=== PATIENT | female | born 1980 | race Caucasian/White ===

== ENCOUNTER 2023-02-09 10:13 | Outpatient (REF) | payer OTHER, SELFPAY | END 2023-02-09 10:14 | disposition home or self-care (01) | LOC: HO.LAB 10:13 | PROVIDERS: PCP Internal Medicine; Visit Provider Psychiatry & Neurology Psychiatry | DX: Z79.899 Other long term (current) drug therapy (principal) | CPT/HCPCS: 36415; 80061; 80076; 84443; 85025; 93005 ==

== ENCOUNTER 2024-12-20 14:12 | Outpatient (AMB) | payer OTHER, SELFPAY ==
--- NOTE | 2024-12-20 14:25 | MHC.OFFVIS ---
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 She has been experiencing lower back pain since shortly after her liver transplant in July 2024. The pain is intense, with a reported severity of 8/10, and has multiple descriptors, including stabbing and burning sensations, greatly impacting her daily activities. She has a medical history of liver transplant following alcohol abuse, now in sobriety for two years, which adds complexity to her pain management. Her bilateral feet pain is associated with numbness and a sensation of tingling, particularly around the shins and tops and bottom of her feet, consistent with peripheral neuropathy possibly aggravated by tacrolimus post-transplant. She is scheduled to undergo EMG testing. Additionally, the patient's medical history is significant for generalized anxiety disorder, bipolar disorder, and PTSD, which likely contribute to her pain perception and management challenges. She is followed by Dr. Juancho Shaw, psychiatrist at [facility], meets with therapist every other week via telehealth. She has previously been advised by orthopedics for chronic right knee and hip pain but has yet to pursue Orthopedic follow-up, primarily due to prioritizing her liver transplant recovery and subsequent complications. Dr. Sameer Gonzalez, Nephrology at [facility], last seen November [address] Judith Reynoso, Hematology at [facility], currently monitoring low WBC. - Chronic lower back pain onset post-liver transplant in July 2024; persistent since. - Pain severity is rated at 8/10, described as pulsing, throbbing, stabbing, sharp, pinching, cramping, tugging, pulling, burning, tingling, thirsting, aching, heavy, tight, squeezing, punishing, and killing. - Pain location includes lower back, bilateral feet, tops of feet, and shins. - Worsened by lying on the back; alleviating factors include prior use of hydrocodone - Bilateral feet pain includes numbness and tingling, particularly on the tops>bottoms of feet and big toes. - Affect: Patient manages pain with oxycodone and reports significant impact on mental health, indicated by associated anxiety and bipolar disorder. - Analgesia: Oxycodone, supplemented with Tylenol, cyclobenzaprine and gabapentin; current pain level is 8/10. - Adverse Effects: No explicit side effects of pain medications reported, but potential concern due to chronic kidney disease. - Activities of Daily Living: Pain impacts daily living significantly; difficulty with sleeping due to back pain. - Aberrant Drug-Related Behaviors: No reported misuse or early refill requests. Oswestry Low Back Pain Disability Score=22 (moderate disability) [facility] Medical History (Updated 12/20/24 @ 21:53 by CONG Barriga) Vitamin B12 deficiency Sleep disturbance Shoulder pain, left PTSD (post-traumatic stress disorder) Peripheral neuropathy Increased urinary frequency Immunosuppression Hyponatremia Hypertension Hyperbilirubinemia History of fracture History of cirrhosis of liver History of alcoholism Gastric ulcer GERD (gastroesophageal reflux disease) Bruxism Chronic lower back pain Bipolar disorder Anxiety Anemia Abnormal urinalysis Abnormal TSH Surgical History (Updated 12/20/24 @ 21:49 by CONG Barriga) History of tonsillectomy Liver transplant recipient (~07/2024) History of lumbar surgery S/P ERCP (~10/2024) History of umbilical hernia repair History of liver transplant Review of Systems Const Details: - Musculoskeletal: Reports chronic lower back pain, chronic right knee pain, chronic right hip pain. - Neurologic: Reports bilateral foot pain, numbness, and tingling in feet and shins. - Psychiatric: Reports anxiety, bipolar disorder, PTSD. - Genitourinary: Reports urinary frequency. - Dermatological: Reports history of recent left ankle cellulitis. - Constitutional: Reports generalized pain discomfort. All systems reviewed & are unremarkable except as noted in HPI and below Physical Exam Vital Signs: Last Vital Signs Pulse 107 H 12/20/24 14:32 BP 112/71 12/20/24 14:32 BMI result Body Mass Index 23.4 General: Appears afebrile. Alert and oriented. Mood and affect appropriate. Follows and participates in conversation appropriately. Respiratory effort is unlabored. No cough. Able to transition from sit to stand unassisted. Ambulates with bilaterally normal heel strike and toe off. General: Yes no CVA tenderness Back/Spine/Pelvis Other: Limited lumbar ROM due to pain, lumbar extension, flexion and bending reproduce moderate pain, worse with axial rotations and extension. Demonstrates 5/5 strength of quadriceps bilaterally as well as 4/5 left and 5/5 right flexion/dorsiflexion of bilateral feet against resistance. 2+ pedal pulses bilaterally. Straight leg rise with dorsiflexion negative bilaterally. +1 patellar and diminished achilles reflexes bilaterally. Facet loading test positive bilaterally. Apul sign, Tin?s, Pelvic compression and Stinchfield tests are negative bilaterally. No groin pain with I/E hip rotations. Valsalva maneuver negative. Back: no CVA tenderness Cervical Spine: cervical ROM normal, cervical muscular tenderness and No Cervical spine tenderness Thoracic/Lumbar Spine: thoracic and lumbar spine normal to inspection, Thoracic/lumbar spine scar(s), Lasegue's sign negative, straight leg raise negative bilaterally, pain with thoraco-lumbar ROM, paraspinal muscle tenderness bilaterally, thoraco-lumbar ROM limited, No thoracic spinal tenderness and lumbar spinal tenderness at L4 and at L5 Pelvis: no buttock tenderness Sacroiliac joints: bilaterally tender to palpation Extrem Other: There is a decreased and altered sensation over the soles of the feet and toes. Reports numbness, burning, hot, tingling in both feet, worse at night time. No breaks in the skin. No soft tissue swelling or warmth. +2 pedal pulses bilaterally. General: Yes capillary refill normal, Yes no clubbing, cyanosis or edema and Yes no calf tenderness Left lower extremity: ankle Details: normal to inspection, no edema and normal ROM; no tenderness, no swelling, no warmth and no crepitus Results Reviewed Results Reviewed: Assessment & Plan Assessment & Plan (1) Lumbar degenerative disc disease: Code(s): M51.369 - Other intervertebral disc degeneration, lumbar region without mention of lumbar back pain or lower extremity pain Category: Medical (2) Chronic lower back pain: Code(s): M54.50 - Low back pain, unspecified; G89.29 - Other chronic pain Category: Medical (3) History of alcoholism: Code(s): F10.21 - Alcohol dependence, in remission Category: Medical (4) Peripheral neuropathy: Code(s): G62.9 - Polyneuropathy, unspecified Category: Medical (5) Lumbosacral spondylosis: Code(s): M47.817 - Spondylosis without myelopathy or radiculopathy, lumbosacral region Category: Medical (6) History of liver transplant: Code(s): Z94.4 - Liver transplant status Category: Medical (7) Lumbar post-laminectomy syndrome: Code(s): M96.1 - Postlaminectomy syndrome, not elsewhere classified Category: Medical Plan I discussed pursuing a spinal cord stimulator trial, pending psychiatric evaluation clearance, to address chronic pain. Scheduled an EMG test to assess neuropathy. Continuing current pain management regime judiciously, considering renal function. Explored additional pain relief options, such as capsaicin topical therapy. Coordination with psychiatrist Dr. Shaw necessary for stimulator suitability. Extensive discussion regarding the risks and benefits of SCS trial and implant procedures and all questions were answered to patient satisfaction. Will proceed with Nevro Lumbar SCS trial pending psychology clearance. Will try to arrange topical 8% capsaicin application for bilateral foot pain once we have confirmed availability. All questions and concerns have been answered and the patient agreed with the plan. Follow up as needed. Patient was informed and verbally consented to the use of an ambient scribe for clinic note documentation during this visit. Coding Level of Care Code New Pt Level 4 (57021) Diagnoses Lumbar degenerative disc disease M51.369 Chronic lower back pain M54.50; G89.29 History of alcoholism F10.21 Peripheral neuropathy G62.9 Lumbosacral spondylosis M47.817 History of liver transplant Z94.4 Lumbar post-laminectomy syndrome M96.1
[2024-12-20 14:32] VITALS: BP 112/71; PULSE 107; BMI 23.4
== END 2024-12-20 14:59 | disposition home or self-care (01) ==
LOC: HO.PMC 14:12
PROVIDERS: PCP Nurse Practitioner Family; Referring Provider Nurse Practitioner Family; Visit Provider Nurse Practitioner Family
DX: M51.369 Other intervertebral disc degeneration, lumbar region without mention of lumbar back pain or lower extremity pain (principal); M54.50 Low back pain, unspecified; G89.29 Other chronic pain; F10.21 Alcohol dependence, in remission; G62.9 Polyneuropathy, unspecified; M47.817 Spondylosis without myelopathy or radiculopathy, lumbosacral region; Z94.4 Liver transplant status; M96.1 Postlaminectomy syndrome, not elsewhere classified
CPT/HCPCS: 99204

== ENCOUNTER → 2024-12-20 14:12 | Outpatient (BNVA) | payer OTHER, SELFPAY | PROVIDERS: PCP Nurse Practitioner Family; Referring Provider Nurse Practitioner Family; Visit Provider Nurse Practitioner Family | DX: M51.360 Other intervertebral disc degeneration, lumbar region with discogenic back pain only (principal); G89.29 Other chronic pain; F10.21 Alcohol dependence, in remission; G62.9 Polyneuropathy, unspecified; M47.817 Spondylosis without myelopathy or radiculopathy, lumbosacral region; M96.1 Postlaminectomy syndrome, not elsewhere classified; Z94.4 Liver transplant status | CPT/HCPCS: 99202 ==

== ENCOUNTER 2025-02-28 09:47 | Outpatient (AMB) | payer OTHER, SELFPAY ==
--- NOTE | 2025-02-28 09:53 | A.OFFVIS_ITS ---
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 The knee pain has been present for at least 10 years and has progressively worsened over time. The patient recalls a previous mention of a meniscus issue and was advised to avoid descending stairs. The pain is described as aching all over the knee, with increased pain upon walking or standing. Occasional clicking or popping is noted, and the patient has experienced stabilization issues at times. The patient has a history of arthritis in both knees, with the right knee being more symptomatic. She has used ice and a brace, oxycodone and gabapentin for pain management, although the brace limits mobility. The patient is allergic to cortisone, which was discovered after a previous injection attempt. She has not tried gel injections but is open to exploring this option. The patient has a history of ascites, which she believes has contributed to her knee issues due to weight fluctuations. She underwent a liver transplant last July and has been stable since then. At previous visit we discussed neuromodulation for chronic painful diabetic neuropathy and Qutenza application. Patient reports chronic sores on her feet and is hesitant towards 8% capsaicin applications or SCS trial at this time. She denies any rashes or ulcers today. Denies any recent cough, cold, infection, fever or any significant changes in medical history since last office visit. - Onset: Pain has been present for at least 10 years. - Quality: Aching pain all over right knee. - Location: Right knee, anterior aspects with tenderness along joint lines - Exacerbating factors: Walking, standing, climbing, bending - Relieving factors: Ice application, use of a brace. - Interference: Pain interferes with walking and standing. - Affect: Pain impacts mobility and daily activities. - Analgesia: Uses ice and a brace; oxycodone and gabapentin; allergic to cortisone. - Adverse Effects: Brace limits mobility. - Activities of Daily Living: Pain affects ability to walk and stand. - Aberrant Drug Related Behaviors: None reported. [facility] Medical History (Updated 02/28/25 @ 10:02 by CONG Barriga) Vitamin B12 deficiency Sleep disturbance Shoulder pain, left PTSD (post-traumatic stress disorder) Peripheral neuropathy Increased urinary frequency Immunosuppression Hyponatremia Hypertension Hyperbilirubinemia History of fracture History of cirrhosis of liver History of alcoholism Gastric ulcer GERD (gastroesophageal reflux disease) Bruxism Chronic lower back pain Bipolar disorder Anxiety Anemia Abnormal urinalysis Abnormal TSH Surgical History History of tonsillectomy Liver transplant recipient (~07/2024) History of lumbar surgery S/P ERCP (~10/2024) History of umbilical hernia repair History of liver transplant Review of Systems Const Details: - Musculoskeletal: Reports right knee pain, occasional clicking or popping, and arthritis in both knees. - Allergic/Immunologic: Reports allergy to cortisone. All systems reviewed & are unremarkable except as noted in HPI and below Physical Exam Vital Signs: Last Vital Signs Pulse 92 02/28/25 09:56 BP 127/77 02/28/25 09:56 Pulse Ox 96 02/28/25 09:56 Oxygen Delivery Method Room Air 02/28/25 09:56 BMI result Body Mass Index 23.6 General: Appears afebrile. No acute distress. Alert and oriented. Mood and affect appropriate. Follows and participates in conversation appropriately. Respiratory effort is unlabored. No cough. Able to transition from sit to stand unassisted. Ambulates with bilaterally normal heel strike and toe off. Extrem General: Yes capillary refill normal, Yes no clubbing, cyanosis or edema and Yes no calf tenderness Right lower extremity: knee (Limited ROM due to pain.) Details: normal to inspection, tenderness Location: of the medial joint line and of the lateral j oint line and crepitus; no swelling, no abrasions, no ecchymosis, no deformity and no unusual warmth Results Reviewed Results Reviewed: XR KNEE, RIGHT 02/28/25 at [facility] [place] CLINICAL INFORMATION: M25.561 - Pain in right knee COMPARISON: None available. TECHNIQUE: AP lateral and sunrise views of the right knee. FINDINGS: No acute cortical disruption or malalignment. Mild joint space narrowing involving medial lateral compartments with small marginal osteophyte formation in the lateral tibial plateau. No suprapatellar bursa joint effusion. No lytic or blastic lesions. Vascular calcifications. IMPRESSION: Mild bicompartmental osteoarthrosis. Assessment & Plan Assessment & Plan (1) Right knee pain: Code(s): M25.561 - Pain in right knee Category: Medical (2) Osteoarthritis of right knee: Code(s): M17.11 - Unilateral primary osteoarthritis, right knee Category: Medical Plan The patient completed right knee xray after today's visit, noted for mild bicompartmental osteoarthrosis. Physical therapy is recommended to strengthen the muscles around the knees for better joint support, increase flexibility, ROM and potentially reduce knee pain thus decrease dependence on medications. The patient is advised to consider gel injections as an alternative to cortisone due to her allergy. She is currently taking oxycodone and gabapentin prescribed by her PCP provider. Nerve blocks may be explored to determine eligibility for radiofrequency ablation or peripheral nerve stimulation. Lidocaine patches will be prescribed to manage pain. Patient avoids NSAIDs due to kidney concerns and h/o liver transplant. All questions and concerns have been answered and patient agreed with the treatment plan. Follow up after PT and sooner as needed. Patient was informed and verbally consented to the use of an ambient scribe for clinic note documentation during this visit. Orders: Orders XR knee RT 3V Today M17.11 - Unilateral primary osteoarthritis, right knee, M25.561 - Pain in right knee PT Evaluation and Treatment Today M17.11 - Unilateral primary osteoarthritis, right knee, M25.561 - Pain in right knee Medications: New lidocaine 5% leave on most painful area for up to 12 hrs topically daily; 30 ea 3RF pain 30 days M17.11 - Unilateral primary osteoarthritis, right knee, M25.561 - Pain in right knee Discontinued lidocaine-prilocaine 2.5-2.5 % Apply 15-30 min to both clean feet prior to Qutenza appt Discontinued Reason: Patient no longer taking 1 appl topical ONCE 30 grams 3RF pain G62.9 - Polyneuropathy, unspecified Coding Level of Care Code Est Pt Level 4 (93830) Complex EM visit Add On G2211 Diagnoses Right knee pain M25.561 Osteoarthritis of right knee M17.11
[2025-02-28 09:56] VITALS: BP 127/77; PULSE 92; O2SAT 96; BMI 23.6
== END 2025-02-28 10:18 | disposition home or self-care (01) ==
LOC: HO.PMC 09:48
PROVIDERS: PCP Nurse Practitioner Family; Visit Provider Nurse Practitioner Family
DX: M25.561 Pain in right knee (principal); M17.11 Unilateral primary osteoarthritis, right knee
CPT/HCPCS: 99214; G2211

== ENCOUNTER 2025-02-28 09:47 | Outpatient (REF) | payer OTHER, SELFPAY ==
--- NOTE | ~2025-02-28 | XR_ITS ---
EXAMINATION: XR KNEE, RIGHT CLINICAL INFORMATION: M25.561 - Pain in right knee COMPARISON: None available. TECHNIQUE: AP lateral and sunrise views of the right knee. FINDINGS: No acute cortical disruption or malalignment. Mild joint space narrowing involving medial lateral compartments with small marginal osteophyte formation in the lateral tibial plateau. No suprapatellar bursa joint effusion. No lytic or blastic lesions. Vascular calcifications. XR/XR knee RT 3V IMPRESSION: Mild bicompartmental osteoarthrosis. Electronically signed by: Alfonso Godoy MD 02/28/2025 10:52 AM EDT
== END 2025-02-28 09:48 | disposition home or self-care (01) ==
LOC: HO.XRAY 09:47
PROVIDERS: PCP Nurse Practitioner Family; Visit Provider Nurse Practitioner Family
DX: M17.11 Unilateral primary osteoarthritis, right knee (principal); M25.561 Pain in right knee; G62.9 Polyneuropathy, unspecified
CPT/HCPCS: 73562; 99212

== ENCOUNTER → 2025-02-28 10:19 | Outpatient (BNV) | payer OTHER, SELFPAY | PROVIDERS: PCP Nurse Practitioner Family; Visit Provider Radiology Diagnostic Radiology | DX: M17.11 Unilateral primary osteoarthritis, right knee (principal) | CPT/HCPCS: 73562 ==

== ENCOUNTER 2025-05-21 10:27 | Outpatient (AMB) | payer OTHER, SELFPAY ==
[2025-05-21 10:33] VITALS: BMI 23.6
--- NOTE | 2025-05-21 10:33 | MHC.OFFVIS ---
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 States she is having pain in all of her hand joints, left is worse than her right. States pain worsen in November after having white cells & blood transfusion and has not improved. Patient has tried using a brace in the past who no relief. Patient describes her pain as in ache in joints of all of her fingers, soreness and weakness in wrist. Left wrist has a popping sound when turning wrist. Hx of liver transplant. Denies numbness or tingling in hand. 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 She complains of bilateral hand & wrist pain, L>R. She complains of a constant ache in all her finger joints, soreness, and weakness in her wrists, which worsens with use. She also feels a painful popping sensation in her left wrist with ROM. No finger locking or catching, no numbness or tingling. She denies any falls or known injury. She says she has a family Hx of Rheumatoid arthritis, but she was evaluated for this in my 30's and said these tests were all negative. She says her symptoms of pain worsened after her liver transplant in 07/2024, as she frequently used her hands to push herself out of her chair. She follows with Pain Management for multiple Lumbar issues, and right knee OA. She reports neuropathy in her feet. [facility] Medical History (Updated 05/21/25 @ 11:33 by Rolly Pruitt) Vitamin B12 deficiency Sleep disturbance Shoulder pain, left PTSD (post-traumatic stress disorder) Peripheral neuropathy Increased urinary frequency Immunosuppression Hyponatremia Hypertension Hyperbilirubinemia History of fracture History of cirrhosis of liver History of alcoholism Gastric ulcer GERD (gastroesophageal reflux disease) Bruxism Chronic lower back pain Bipolar disorder Anxiety Anemia Abnormal urinalysis Abnormal TSH Surgical History History of tonsillectomy Liver transplant recipient (~07/2024) History of lumbar surgery S/P ERCP (~10/2024) History of umbilical hernia repair History of liver transplant Social History (Updated 05/21/25 @ 10:38 by LULU Haney) Current occupational status: disabled Current occupation: right hand Review of Systems Const All systems reviewed & are unremarkable except as noted in HPI and below Physical Exam Vital Signs: BMI result Body Mass Index 23.6 Const General: cooperative, healthy appearing and no acute distress Orientation/consciousness: patient oriented x3 HEENT Head: Yes normocephalic and Yes atraumatic Eyes EOM: EOMs intact bilaterally Resp Effort & Inspection: normal respiratory effort and able to speak in complete sentences Cardio Jugular venous distension: no JVD Skin General skin exam: turgor normal Rashes: no rashes Neuro General: patient oriented x3 Extrem Other: Evaluation of Left Upper Extremity: The patient is alert, oriented, and in no acute distress Neuro: Median, Ulnar, Radial nerves motor and sensory intact and sensation is normal to the tips of all digits No thenar or intrinsic wasting Good APB muscle belly firing and good finger cross Good ABduction & ADduction Vascular: Cap refill brisk ROM: She can make a fist and extend all her digits No locking or catching Smooth & symmetrical wrist ROM Skin: No lacerations or abrasions. General: No Ecchymosis. No Erythema or evidence of infection. DRUJ stable No tenderness over the wrist joint No snuffbox or scaphoid tubercle tenderness Radiographs: 3 views of the left hand were taken and viewed by me today in clinic. They show no fractures, dislocations, or significant arthritic changes Psych Appearance: grossly normal Affect: normal affect Attitude: cooperative Assessment & Plan Assessment & Plan (1) Bilateral hand pain: Code(s): M79.641 - Pain in right hand; M79.642 - Pain in left hand Category: Medical (2) Pain of both wrist joints: Code(s): M25.531 - Pain in right wrist; M25.532 - Pain in left wrist Category: Medical Plan Assessment & Plan: 1. Left hand & wrist generalized pain In all digits, etiology unclear This is her chief complaint today 2. Right hand & wrist generalized pain In all digits, etiology unclear I educated her about this condition It sounds like these symptoms began after her liver transplant in July 2025 when she needed to use her hands to push herself up out of a chair frequently. Symptoms are improving but slowly. I discussed treatment options I recommend activity modification, and she is in agreement No operative intervention indicated at this time, radiographs normal I ordered OT hand therapy to work on stretching, strengthening, and normalizing function She can follow up prn Scribed for Aileen Dinh MD by Rolly Pruitt, biomedical equipment specialist, on 05/21/25 at 11:30 AM, EST. Orders: Orders OT Evaluation and Treatment Today M79.641 - Pain in right hand, M79.642 - Pain in left hand XR hand LT min 3V Today M79.642 - Pain in left hand Coding Level of Care Code New Pt Level 3 (01887) Diagnoses Bilateral hand pain M79.641; M79.642 Pain of both wrist joints M25.531; M25.532
--- OUTSIDE RECORDS SUMMARY | 2025-05-21 12:26 | XMS_ITS | Data Portability ---
Author Organization [facility] Address [address] [place] [address] Care Team Providers Care Concrete Paving Supervisor Name Role Phone HIM CROW OTHER Assessment Encounter Date Assessment Date Assessment LastModified by Organization Details LastModified Time 12/13/2023 12/13/2023 As noted, we were called to see this patient regarding concerns of fever. Evaluation in the field was performed by my steam drier tender colleague, as noted above, I provided real-time direction and supervision for this visit. The evaluation revealed 43y F with cirrhosis presenting w fever, abdominal pain, hypotension, tachycardia -- concern for SBP, sepsis, other infectious etiology. Recommend ER. Patient agrees. Impression: concern for sepsis, SBP Plan: ER referral Primary care, consider ER f/u atilhou Not available 12/13/2023 21:26:20 Plan of Treatment Reminders Order Date Submit Date Provider Last Modified By Organization Details Last Modified Time Details Appointments None record ed. Lab None record ed. Referral None record ed. Procedures None record ed. Surgeries None record ed. Imaging None record ed. Medication Orders None record ed. Patient TargetsNo targets recorded. Patient InstructionsNo instructions recorded. Reason for Referral None Reported. Medical Equipment None Reported. Allergies Allergen ID Allergen Name Allergen Category Reaction Reaction Severity Criticality Documentation Date Start Date Code Code System Note Provider Name and Address Organization Details Recorded Time 9711 latex environme nt,medica tion Not available Not available Not available 06/04/2024 51832 91 RxNorm Not Available [facility] - production 04:14:49 Medications Name Sig Start Date Stop Date Status Note LastModified by Organization Details LastModified Time vitamin b-1 100 mg tabs TAKE 1 TABLET BY MOUTH EVERY DAY active Not Available Not Available No t Available cyclobenzapr ine 10 mg tablet TAKE 1 TABLET BY MOUTH TWICE DAILY NEEDED FOR SPASM active Not Available Not Available No t Available furosemide 40 mg tablet TAKE 2 TABLETS BY MOUTH DAILY active Not Available Not Available Not Available medroxyproge sterone 10 mg tablet TAKE 1 TABLET BY MOUTH DAILY FOR 10 DAYS active Not Available Not Available Not Available clonidine HCl 0.1 mg tablet TAKE 2 TABLETS BY MOUTH AT BEDTIME active Not Available Not Available No t Available trazodone 50 mg tablet TAKE 1 TABLET BY MOUTH AT BEDTIME NEEDED FOR SLEEP active Not Available Not Available No t Available ondansetron HCl 4 mg tablet TAKE 1 TABLET BY MOUTH EVERY 8 HOURS NEEDED FOR NAUSEA OR VOMITING active Not Available Not Available No t Available clonazepam 0.5 mg tablet TAKE 1 TABLET BY MOUTH EVERY DAY NEEDED FOR ANXIETY OR INSOMNIA active Not Available Not Available No t Available spironolacto ne 100 mg tablet TAKE 2 TABLETS BY MOUTH DAILY IN THE MORNING active Not Available Not Available No t Available cyanocobalam in (vit B-12) 1,000 mcg tablet TAKE 1 TABLET BY MOUTH DAILY active Not Available Not Available Not Available tramadol 50 mg tablet TAKE 1 TABLET BY MOUTH EVERY 12 HOURS NEEDED FOR PAIN active Not Available Not Available No t Available clonidine HCl 0.2 mg tablet TAKE 2 TABLETS BY MOUTH EVERY NIGHT active Not Available Not Available No t Available triamcinolon e acetonide 0.025 % topical cream APPLY TOPICALLY TO THE AFFECTED AREA TWICE DAILY FOR 14 DAYS active Not Available Not Available No t Available sertraline 25 mg tablet TAKE 1 TABLET BY MOUTH EVERY NIGHT AT BEDTIME active Not Available Not Available No t Available omeprazole 20 mg capsule,nydia yed release TAKE 1 CAPSULE BY MOUTH DAILY active Not Available Not Available Not Available folic acid 1 mg tablet TAKE 1 TABLET BY MOUTH DAILY active Not Available Not Available Not Available hydroxyzine HCl 25 mg tablet TAKE 1 TABLET BY MOUTH DAILY AT BEDTIME active Not Available Not Available N ot Available gabapentin 100 mg capsule TAKE 1 CAPSULE BY MOUTH THREE TIMES DAILY active Not Available Not Available Not Available ferrous sulfate 325 mg (65 mg iron) tablet,delay ed release TAKE 1 TABLET BY MOUTH DAILY active Not Available Not Available Not Available Ventolin HFA 90 mcg/actuatio n aerosol inhaler INHALE 2 PUFFS BY MOUTH 4 TIMES A DAY NEEDED FOR WHEEZING active Not Available Not Available No t Available simethicone 80 mg chewable tablet CHEW AND SWALLOW 1 TABLET BY MOUTH THREE TIMES DAILY AFTER MEALS AND AT BEDTIME active Not Available Not Available No t Available hydroxyzine pamoate 25 mg capsule TAKE 1 CAPSULE BY MOUTH EVERY NIGHT AT BEDTIME active Not Available Not Available No t Available acamprosate 333 mg tablet,delay ed release TAKE 2 TABLETS BY MOUTH THREE TIMES A DAY active Not Available Not Available Not Available duloxetine 20 mg capsule,nydia yed release TAKE ONE CAPSULE BY MOUTH EVERY MORNING WITH 60MG CAPSULE FOR TOTAL DAILY DOSE OF 80MG EVERY MORNING active Not Available Not Available No t Available duloxetine 30 mg capsule,nydia yed release TAKE ONE CAPSULE BY MOUTH EVERY NIGHT AT BEDTIME. TAKE IN COMBINATION WITH 60MG CAPSULE active Not Available Not Available No t Available duloxetine 60 mg capsule,nydia yed release TAKE 1 CAPSULE BY MOUTH EVERY DAY active Not Available Not Available No t Available lactulose 10 gram/15 mL oral solution TAKE 30 ML BY MOUTH THREE TIMES DAILY GOAL AT LEAST 3 BOWEL MOVEMENTS A DAY active Not Available Not Available No t Available bismuth subcit K 140 mg-metronida zole 125 mg-tetracycl ine 125 mg cap TAKE 3 CAPSULES BY MOUTH FOUR TIMES DAILY FOR 2 WEEKS TAKE WITH FOOD active Not Available Not Available No t Available Xifaxan 550 mg tablet TAKE 1 TABLET BY MOUTH TWICE DAILY active Not Available Not Available No t Available PreviDent 5000 Booster Plus 1.1 % dental paste USE DIRECTED PER PACKAGING active Not Available Not Available No t Available Ozempic 0.25 mg or 0.5 mg (2 mg/3 mL) subcutaneous pen injector INJECT 0.5 MG UNDER THE SKIN EVERY 7 DAYS active Not Available Not Available No t Available Vitals Date Recorded Oxygen saturation Oxygen saturation in Arterial blood by Pulse oximetry Respiratory rate Body height Heart rate Body weight Body temperature Systolic And Diastolic Provider Name and Address Organization Details Last Updated DateTime 4 95 % 95 % 18 /min 167.64 cm 120 /min 23737.8 24 g 100.5 [degF] 90/50 mm[Hg] Not Available [facility] - production 4 21:18:30 Social History None recorded. Functional Status None recorded. Mental Status None recorded. Family History Nothing Reported. Medical History No medical history recorded. Gynecological HistoryNo gynecological history recorded. Obstetrics History GPAL:G 0 P 0 0 0 0 Past Encounters Encounter ID Performer Location Encounter Start Date Encounter Closed Date Diagnosis/Indication Diagnosis SNOMED-CT Code Diagnosis ICD10 Code Diagnosis IMO Codes Diagnosis Note [id number] Randa Keller MD [facility] [address] [place] [phone] 12/13/2023 21:18:27 12/13/2023 22:00:54 Health Concerns Section Related Observation LastModified by Organization Марина ls LastModified Time None Recorded Concern Status LastModified by Organization Details LastModified Time None Recorded Advance Directives Directive None Recorded Payers Insurance Date Sequence Insurance Name Policy Number Policy Sheikh Covered Member ID Sheikh Member ID Guarantor Name 07/03/2024 1 [facility] - DOS ON OR AFTER 2022 - DUAL ELIGIBLE - SNF OPTIONS AND ONE CARE (MEDICARE REPLACEMENT/AD VANTAGE - HMO) Fryolan Hansen [id number] Froylan Hansen Notes Date Note Type Note Provider Name and Address Organization Details Recorded Time 12/13/2023 text/html HPI: Extremely swollen legs, arms, feet. Jaundice. Diagnosed with cirrhosis (meld score of 18) and ascites. Temperature of 100.3 (my normal temperature is 97.6). .................. .................. .................. .................. .................. .................. .................. ............... [facility] Nurse Triage Notes (Lyly Schreiber): Reason For Request: Possible infection Chief Complaints: Nausea/Vomiting PMH: Other Allergies: Latex Comments: Spotlight Operator verified the member's name//address and phone number. Member is a 43 yr old female The member is calling with c/o temp 100.3. The member has ascites, which were drained on Monday and will be drained again this Monday. The member goes to GI next week and will decide if it needs to be tapped every five days. The member has also been vomiting. The member takes lactulose but has been throwing it up and spironolactone. Member thinks she is on the transport list. Sensitive to latex/ Sulfa Education provided on the response time and the member was advised to monitor reported s/s and seek emergency treatment if needed Randa Keller MD [address] [facility],[address], [place], [address], [employer] 12/13/2023 22:00:52 OBGyn Episode No OBEpisode recorded.
== END 2025-05-21 11:33 | disposition home or self-care (01) ==
LOC: HO.HOS 10:28
PROVIDERS: PCP Nurse Practitioner Family; Visit Provider Orthopaedic Surgery
DX: M79.641 Pain in right hand (principal); M79.642 Pain in left hand; M25.531 Pain in right wrist; M25.532 Pain in left wrist
CPT/HCPCS: 99203

== ENCOUNTER → 2025-05-21 10:27 | Outpatient (BNVA) | payer OTHER, SELFPAY | PROVIDERS: PCP Nurse Practitioner Family; Visit Provider Orthopaedic Surgery | DX: M79.641 Pain in right hand (principal); M79.642 Pain in left hand; M25.531 Pain in right wrist; M25.532 Pain in left wrist | CPT/HCPCS: 99202 ==

== ENCOUNTER → 2025-05-21 11:03 | Outpatient (BNV) | payer OTHER, SELFPAY | PROVIDERS: Visit Provider Radiology Diagnostic Ultrasound | DX: M79.642 Pain in left hand (principal) | CPT/HCPCS: 73130 ==

== ENCOUNTER 2025-05-22 08:21 | Outpatient (REF) | payer OTHER, SELFPAY ==
--- NOTE | ~2025-05-22 | XR_ITS ---
EXAMINATION: XR HAND, LEFT CLINICAL INFORMATION: M79.642 - Pain in left hand COMPARISON: None available. TECHNIQUE: PA, lateral, and oblique views of the left hand. FINDINGS: Osseous mineralization appears slightly decreased. No visible acute fracture, dislocation or suspicious bony lesion. No significant joint space narrowing or marginal osteophytes. No osseous erosion. No abnormal soft tissue calcification. XR/XR hand LT min 3V IMPRESSION: No radiographic evidence of acute osseous findings. Electronically signed by: Vikram Chilel MD 05/21/2025 01:04 PM EDT
== END 2025-05-22 08:22 | disposition home or self-care (01) ==
LOC: HO.HOSX 08:21
PROVIDERS: Visit Provider Orthopaedic Surgery
DX: M79.642 Pain in left hand (principal)
CPT/HCPCS: 73130

== ENCOUNTER 2025-07-29 12:30 | Outpatient (RCR) | payer OTHER, SELFPAY ==
--- NOTE | 2025-05-26 11:39 | MHC.OT.OEV ---
[facility] Office [address] [phone] F: [phone] F: [phone] Occupational Therapy Evaluation Patient Name: Julia Roebrson Diagnosis: (B)hand pain Date of Onset: Date of Surgery: Attending Provider: Aileen Dinh Prescribed Treatment: MD Follow Up Appointment: History of Current Condition: Patient is a 44 y/o (R)hand dominate female with significant medical history for but not limited to s/p liver transplant 07/2025 PTSD, HTN, CKD IV who present today with c/o hand pain. The pain began after her surgery lifting her herself up from w/c. She reports a 4/10 at rest and 6/10 pain during activity which is an achy pain and reports the (L)is worse then the (R). The pain is mostly in the morning and her fingers feel as though they are stuck in a claw position. She report her PLOF as (I)ADLs/IADLs, she is on disability and lives with her and 2 cats. At this time she has difficulty with lifting, pushing. She enjoys reading, researching, t.v. walking to rebuild muscles and playing with cats. Significant Medical History: Vitamin B12 deficiency Sleep disturbance Shoulder pain, left PTSD (post-traumatic stress disorder) Peripheral neuropathy Increased urinary frequency Immunosuppression Hyponatremia Hypertension Hyperbilirubinemia History of fracture History of cirrhosis of liver History of alcoholism Gastric ulcer GERD (gastroesophageal reflux disease) Bruxism Chronic lower back pain Bipolar disorder Anxiety Anemia Abnormal urinalysis Abnormal TSH Precautions/Contraindications: Patient Goals: Hand Dominance: Right Observations: QuickDASH Score: 50% Prior Level of Function and Occupation Self Care, Employment, Leisure: On Disability (I)ADLs/ IADLs Reading, researching, t.v. walking to rebuild muscles and playing with cats. Living Situation, Family and/or Social Support: Lives with and 2 cats Current Level of Function and Occupation Self Care, Employment, Leisure: min (A) ADLs/IADLS Sleep: Pain in hands does not wake patient at night Driving: Does not drive Vision: Balance: Pain Assessment Pain Score: 6 Pain Scale Used: Numeric (0 - 10) Pain Location and Description: 4/10 at rest 6/10 during activity achy pain Aggravating Factors: Alleviating Factors: Tylenol, heating pad Skin and Soft Tissue Assessment Skin and Soft Tissue: Comments: Skin intact No edema present Nerve assessment Ulnar Nerve: Median Nerve: Radial Nerve: Comments: Sensory Assessment Temperature: Light Touch: Proprioception: Vibration: Comments: Edema Assessment Upper Extremity: Lower Extremity: Comments: Dexterity Assessment Dexterity: Comments: Special Tests Comments: AROM(PROM) Strength Cervical Cervical Flexion: Cervical Extension: Cervical Lateral Flexion: Cervical Rotation: Comments: Shoulder Flexion: Extension: 110 Abduction: 100 Internal Rotation: External Rotation: Comments: Patient reports mild discomfort with movement Flexion: Extension: Abduction: Internal Rotation: External Rotation: Comments: Elbow Flexion: Extension: Pronation: Supination: Comments: WFL Flexion: Extension: Pronation: Supination: Comments: Wrist Flexion: (R)90(L)55 Extension: (R)60(L)55 Ulnar Deviation: (R)40(L)37 Radial Deviation: (R)26(L)10 Comments: Flexion: Extension: Ulnar Deviation: Radial Deviation: Comments: Thumb Thumb CMC Flexion: Thumb MCP Flexion: Thumb IP Flexion: Radial Abduction: Palmar Abduction: [place] (Kapandji 0-10): Comments: WFL Digits Index MCP: PIP: DIP: Long MCP: PIP: DIP: Ring MCP: PIP: DIP: Small MCP: PIP: DIP: Comments: WFL Gross Grasp: (R)25lbs.(L)25lbs. Lateral Pinch: Two-Point Pinch: Three-Jaw Edwardo: Comments: Patient Education Primary Language: Environmental Conservation Officer Required: No Current Knowledge: Teaching Method: Handouts Verbal Education Needs Identified on Evaluation: ADL's Equipment Use Exercise Pain How did patient/family demonstrate learning? Patient demonstrates Patient verbalizes Barriers to Learning: None Readiness for Learning: Accepting Who was educated? Patient Comments: Plan of Care Assessment: Based on initial OT evaluation patient presents with impaired ROM, impaired strength, pain and impaired performance during self care tasks. Quick DASH= 50% indicating patient perceived impairment of (B)UE during self care tasks. Patient also presents with tightness throughout the (B)UE. At this time it is recommended that patient receive skilled OT in order for patient to achieve her PLOF as (I). Thank you for you referral. STG Duration: 2 weeks Short Term Goals: Patient will report 4/10 pain in the (B)UE during self care tasks Patient will increase (L)wrist extension to 65* Patient will increase (R)wrist extension to 70* Patient will increase (B)client administrator strength to 30lbs. LTG Duration: 4 weeks Manager English Goals: Patient will report 1/10 pain in the (B)UE during self care tasks Patient will have (R)wrist ROM WFLs Patient will have (L)wrist ROM WFLs Patient will be (I)with HEP Patient will report decreased Quick DASH to 20% or less Frequency and Duration: The patient will be seen 2x a week for 4 weeks Treatment Plan: Therapeutic Exercise Therapeutic Activity Home Exercise Program Splinting Neuro Re-ed Patient Education Desensitization/Sensory Re-ed Edema Control ADL Training Ultrasound NMES Iontophoresis Paraffin Fluidotherapy MHP Cold Packs Joint Mobilization Soft Tissue Mobilization Kinesiotaping Other (see comments) skilled OT eval and treat Electronically Signed By: Lurdes Helm OTR/L, CLT Reviewed/agree with student documentation: Therapist: Please sign and return to therapist, Thank you for your referral.
--- NOTE | 2025-07-29 16:14 | MHC.OT.DC ---
[facility] Office [address] [phone] F: [phone] F: [phone] Occupational Therapy Discharge Note Patient Name: Julia Roberson Provider: Aileen Dinh Diagnosis: (B)hand pain Date of Surgery: Date of Evaluation: 05/26/25 Date of Discharge: Treatments to Date: 10 Cancellations to Date: No Shows to Date: Discharge Status: Improved Function Independent with HEP Patient Elected to Stop Discharge Summary: Patient is d/c'd from skilled OT services as she achieved her maximal potential. At this time patient reports 0/10 pain of the (R)wrist, has increased her arabic teacher strength by 10lbs and her ROM is WNLs, however she continues to report 2/10 pain in the (L)wrist and she achieved 61* of wrist extension. Due to continued report or pain and decreased ROM patient will reach out to ortho for consultation for further diagnostic assessment. Patient was a pleasure to work with, thank you for your referral. Electronically Signed By: Lurdes Helm OTR/Lori, CLT Reviewed/agree with student documentation: Therapist: Please Sign and return to therapist, thank you for your referral.
== END 2025-07-29 16:15 | disposition home or self-care (01) ==
LOC: HO.OT 12:30
PROVIDERS: PCP Nurse Practitioner Family; Visit Provider Orthopaedic Surgery
DX: M79.641 Pain in right hand (principal); M79.642 Pain in left hand
CPT/HCPCS: 97110; 97140; 97165; 97535